=== PATIENT | male | born 1960 | race African-American/Black ===

== ENCOUNTER 2018-01-21 19:31 | Emergency (ER) | payer MEDICAID ==
[2018-01-21] MEDS ORDERED: Sodium Chloride 0.9% 1,000 ML IV ONE (20:05)
[2018-01-21] MEDS ORDERED: HYDROmorphone 1 mg/mL 1mL Syr IVP STA ×2 (20:06→22:17)
--- NOTE | 2018-01-21 20:13 | ED Physician Chart ---
ED Chief Complaint/HPI - Patient Information Date Seen:: 01/21/18 Time Seen:: 19:55 Chief Complaint:: epigastric pain History of Present Illness:: Patient's had epigastric pain for the last 2 days. He vomited 4-5 times. He's had no diarrhea. Patient has a history of pancreatitis the last episode of which was one month ago for which she was hospitalized at [facility]. Allergies:: Allergies Allergy/AdvReac Type Severity Reaction Status Date / Time No Known Allergies Allergy Verified 01/21/18 19:39 Vitals:: Vital Signs - 8 hr 01/21/18 19:31 Temp 97.7 F HR 76 RR 18 BP 161/80 Historian:: Patient Review:: Nurse's Note Reviewed ED Review of Systems - Review of Systems General/Constitutional: No fever, No chills Skin: No skin lesions Head: No headache Eyes: No loss of vision ENT: No earache Neck: No neck pain Pulmonary: No SOB GI: Nausea, Vomiting, Pain G/U: No dysuria Musculoskeletal: No bone or joint pain Endocrine: No polyuria Psychiatric: No prior psych history Hematopoietic: No bruising Allergic/Immuno: No urticaria Neurological: No syncope, No focal symptoms ED Past Medical History - Past Medical History Past Medical History: Other (pancreatitis) Family History: Diabetes Melitus, HTN Social History: Smoker, No Alcohol, Other (smokes 4-5 cigarettes a day; last alcohol consumption was 4 years ago) Surgical History: other (4 surgeries for pancreatitis and for a ruptured spleen from a fall. Patient is unsure of he had had a splenectomy) Psychiatricy History: None Family Medical History - Family Member Mother History Unknown: Yes ED Physical Exam - Physical Examination General/Constitutional: Well-developed, well-nourished, Alert, No distress Head: Atraumatic Eyes: Lids, conjuctiva normal, PERRL, EOMI Skin: Nl inspection, No rash, No skin lesions, No ecchymosis, Well hydrated, No lymphadenopathy ENMT: External ears, nose nl, Nasal exam nl, Lips, teeth, gums nl Neck: Nontender, Full ROM w/o pain, No JVD, No nuchal rigidity, No bruit, No mass, No stridor Respiratory: Nl effort/Exclusion, Clear to Auscultation, No Wheeze/Rhonchi/Rales Cardio Vascular: RRR, No murmur, gallop, rubs, NL S1 S2 GI: No organomegaly, No hernia, Normal BS's, Nondistended, No mass/bruits Other GI comments:: Diffuse abdominal tenderness : No CVA tenderness Extremities: No tenderness or effusion, Full ROM, normal strength in all extremities, No edema, Normal digits & nails Neuro/Psych: Alert/oriented, DTR's symmetric, Normal sensory exam, Normal motor strength, Judgement/insight normal, Mood normal, Normal gait, No focal deficits Misc: Normal back, No paraspinal tenderness ED Labs/Radiology/EKG Results - Lab Results Results: Laboratory Results - last 24 hr 01/21/18 01/21/18 01/21/18 20:40 20:40 20:40 WBC 4.3 L RBC 3.53 L Hgb 11.6 L Hct 35.4 L MCV 100.4 H MCH 33.0 H MCHC Differential 32.9 RDW 14.5 Plt Count 375 MPV 8.9 Neutrophils % 40.3 Lymphocytes % 45.7 Monocytes % 10.2 H Eosinophils % 3.8 Basophils % 0.0 Sodium 131 L Potassium 3.5 Chloride 99 Carbon Dioxide 19.6 L Anion Gap 15.9 BUN 14 Creatinine 1.1 Est GFR ( Amer) > 60.0 Est GFR (Non-Af Amer) > 60.0 BUN/Creatinine Ratio 12.7 Glucose 383 H Calcium 8.7 Magnesium 2.0 Troponin I 0.01 Lipase 10 L - Radiology Results Results: CT abdomen and pelvis showed chronic pancreatitis - EKG Interpretations Rate & Rhythm: normal sinus rhythm with a rate of 72 [place]: normal Comments:: Concave ST elevation in leads V1 to V3 ED Assessment - Assessment General Assessment: At 2210 patient has had no improvement in his abdominal pain. Since patient does not have acute pancreatitis he can be discharged after the second liter of IV fluids and 10 of regular insulin subcutaneously to decrease his blood sugar ED Septic Shock - . Is Septic Shock (SBP<90, OR Lactate>4 mmol\L) present?: No - <6hrs of presentation: Vital Signs: Vital Signs - 8 hr 01/21/18 19:31 Temp 97.7 F HR 76 RR 18 BP 161/80 ED Reassessment (Disposition) - Reassessment Reassessment Condition:: Unchanged - Diagnosis Diagnosis:: Gastritis; hyperglycemia; diabetes; history of pancreatitis - Aftercare/Follow up Instructions Aftercare/Follow-Up Instructions:: Refer to Discharge Instructions - Patient Disposition Discharge/Transfer:: Home Condition at Disposition:: Stable, Unchanged
[2018-01-21] MEDS ORDERED: HYDROmorphone 1 mg/mL 1mL Syr ONE ×2 (20:14→22:24)
[2018-01-21 20:57] LABS: % EOSINOPHILS 3.8 % (0.0-5.0); % LYMPHOCYTES 45.7 % (20.0-50.0); % MONOCYTES 10.2 % (2.0-10.0); % NEUTROPHILS 40.3 % (40.0-80.0); EOSINOPHILE ABSOLUTE 0.2 Th/cmm (0.1-0.4); HEMATOCRIT 35.4 % (41.0-60); HEMOGLOBIN 11.6 gm/dL (12-16); MEAN CELL VOLUME 100.4 fl (80-99); MEAN CORPUSCULAR HGB CONC 32.9 pg (28.0-36.0); MEAN PLATELET VOLUME 8.9 fl; MONOCYTE ABSOLUTE 0.4 Th/cmm (0.3-1.0); NEUTROPHILE ABSOLUTE 1.7 Th/cmm (1.8-8.0); PLATELET COUNT 375 Th/cmm (150-400); RED BLOOD COUNT 3.53 Mil/cmm (4.30-5.70); RED CELL DISTRIBUTION WIDTH 14.5 % (11.5-20.0); WHITE BLOOD COUNT 4.3 Th/cmm (4.8-10.8)
[2018-01-21 21:15] LABS: ANION GAP 15.9 (7.0-16.0); BUN - UREA NITROGEN 14 mg/dL (7-25); CALCIUM SERUM 8.7 mg/dL (8.6-10.3); CARBON DIOXIDE 19.6 mEq/L (21.0-31.0); CHLORIDE 99 mEq/L (98-107); CREATININE - SERUM 1.1 mg/dL (0.7-1.3); GFR AFRICAN-AMERICAN > 60.0 ml/min (>90); GFR NON AFRICAN-AMERICAN > 60.0 ml/min; GLUCOSE 383 mg/dL (70-105); LIPASE 10 U/L (11-82); POTASSIUM SERUM 3.5 mEq/L (3.5-5.1); SODIUM SERUM 131 mEq/L (136-145)
[2018-01-21] MEDS ORDERED: INSULIN HUMAN REGULAR 100 UNITS/ML UNIT SUBQ ONE (22:16)
[2018-01-21] MEDS ORDERED: INSULIN HUMAN REGULAR 100 UNITS/ML UNIT ONE (22:21)
[2018-01-21 22:48] LABS: URINE MICROSCOPIC INDICATED? YES; URINE SOURCE MIDSTREAM
[2018-01-21 22:50] LABS: URINE BILIRUBIN NEGATIVE (NEGATIVE); URINE BLOOD NEGATIVE (NEGATIVE); URINE GLUCOSE (UA) >=1000 mg/dL (NEGATIVE); URINE KETONE NEGATIVE (NEGATIVE); URINE LEUKOCYTE ESTERASE NEGATIVE (NEGATIVE); URINE NITRATE NEGATIVE (NEGATIVE); URINE PROTEIN NEGATIVE (NEGATIVE); URINE UROBILINOGEN 0.2 E.U./dL (0.2 - 1.0)
[2018-01-21 22:53] LABS: URINE CLARITY CLEAR (CLEAR); URINE COLOR YELLOW
[2018-01-21 22:55] LABS: URINE BACTERIA FEW /hpf (NONE SEEN); URINE EPITHELIAL CELLS RARE /lpf (FEW); URINE RBC 0-2 /hpf (0-5); URINE WBC 0-2 /hpf (0-5)
--- NOTE | 2018-01-22 08:01 | Diagnostic Imaging Report ---
CT abdomen and pelvis without intravenous contrast Indication: Abdominal pain Comparison: None, Technique: Axial images were obtained from the lung bases to the bilateral proximal femurs without IV contrast. Coronal reconstructions were made. total DLP: 475, CTDI8.8 FINDINGS: Partially visualized pacemaker wires are noted. There may be a left posterior diaphragmatic hernia. Hypoventilatory and atelectatic changes of the lung bases are noted. Assessment of the solid organs is limited due to lack of IV contrast. No focal hepatic lesions identified. There is mild distention of the gallbladder with no radiopaque gallstones. Splenic tissue is poorly visualized on this exam. There are diffuse pancreatic calcifications with prominent soft tissue density seen along the left upper quadrant. There is also 1.7 x 1.2 cm low-density lesion in the head of the pancreas. There is poor visualization of the of the left adrenal gland. There is a probable left adrenal nodule is difficult to delineate but appears to have Hounsfield units less than 10. No focal renal lesions or evidence of hydronephrosis. Distended urinary bladder is noted. Mildly prominent prostate gland is noted. Small right bilateral fat-containing inguinal hernias are noted. There is copious amount of stool throughout the colon. No evidence of appendicitis. Nonspecific fluid distended loops of small bowel are noted. There is fat density within small bowel loops of the right mid abdomen measuring 2 x 2 centimeters (image 47, series 2). No evidence of free fluid or free air. Diffuse atherosclerotic vascular disease is noted. Degenerative changes of the spine and pelvis are noted. Metallic density possible surgical clip of the nasal region is noted. Metallic density of the left upper quadrant are noted with postsurgical changes. IMPRESSION: Markedly distended stomach containing food contents. There is also distention of the proximal duodenum. The significance finding should be correlated clinically. Fluid-filled loops of small bowel are noted without definite evidence of obstruction. Copious stool throughout the colon. Correlate clinically for constipation. Fat density within small bowel loops along the left upper abdomen. This may be due to swallowed material or possibly a lipoma. Pancreatic gland calcifications, sequela of chronic pancreatitis. More prominent soft tissue density of the left upper quadrant is noted which is difficult to determine but may represent pancreatic tissue or possibly remnant splenic tissue as the spleen is not well-visualized and was probably removed. CT with IV contrast with would provide for additional detail and assessment. Indeterminate Low-density lesion measuring 1.7 x 1.2 cm along the head of the pancreas. Again this is indeterminate. Recommend CT with IV and oral contrast for further assessment. Distended urinary bladder with mild urinary bladder wall thickening. Inflammatory process cannot be excluded. Prominent prostate gland. Suspect left adrenal lesion probably a left lipid rich adrenal adenoma. Diffuse atherosclerotic vascular disease. Postsurgical changes including surgical clips of the left upper quadrant. A surgical clip is seen below the umbilical region, correlate clinically.
[2018-01-22 18:16] LABS: A1C % 11.6 % (4.0-6.0)
== END 2018-01-21 22:50 | disposition home or self-care (01) ==
LOC: ER 19:31
DX: E11.65 Type 2 diabetes mellitus with hyperglycemia (principal); K29.70 Gastritis, unspecified, without bleeding; F17.210 Nicotine dependence, cigarettes, uncomplicated
CPT/HCPCS: 99285; 96372; 96374; 96375; 96376; 93005; 74176; 84484; 36415; 85025; 81001; 83036; 83690; 83735; 80048; J2405; J1815; J1170; J7030